=== PATIENT | male | born 1985 | race Caucasian/White ===

== ENCOUNTER 2021-02-01 11:23 | Emergency (ER) | payer SELFPAY ==
[~2021-02-01] VITALS: Ht 188 cm; Wt 96.2 kg
[~2021-02-01 11:23] MED LIST: OXYC1TAB14 PO
--- NOTE | 2021-02-01 11:29 | NUR ---
first call, no answer
[2021-02-01 11:31] VITALS: BP 161/101
--- NOTE | 2021-02-01 11:44 | NUR ---
RECREATION TECHNICIAN AT BS
--- NOTE | 2021-02-01 12:07 | NUR ---
PA AT BS
--- NOTE | 2021-02-01 12:27 | NUR ---
Patient given discharge instructions and they have confirmed that they understand the instructions. Patient ambulatory with steady gait.
== END 2021-02-01 12:29 | disposition home or self-care (01) ==
LOC: ED 12:26
DX: F15.10 Other stimulant abuse, uncomplicated (principal); F17.210 Nicotine dependence, cigarettes, uncomplicated; Z72.9 Problem related to lifestyle, unspecified; R00.0 Tachycardia, unspecified
CPT/HCPCS: 99283; 99406